=== PATIENT | male | born 1980 | race Caucasian/White ===

== ENCOUNTER 2018-09-16 14:37 | Outpatient (CLI) | payer BC ==
[2018-09-16 15:45] LABS: BASOPHILS % 1.8 (0.0-1.5); EOSINOPHILS % 2.7 % (0.0-6.8); MEAN CORPUSCULAR HEMOGLOBIN 29.1 pg (28.0-34.0); MONOCYTES % 7.2 % (0.0-11.0)
[2018-09-16 15:46] LABS: eGFR (Non-African) > 60
--- NOTE | 2018-09-17 05:31 | Diagnostic Imaging Report ---
CASE BRUCE [facility] [id number] [facility] [address] [address] Report Submission Date: Sep 16, 2018 3:55:06 PM WEIGHT CALLER Patient Study Name: LIZA PRECIADO Date: Sep 16, 2018 2:58:08 PM WEIGHT CALLER Modality Type: DX Gender: M Description: CHEST 2VIEW : 82 Institution: [facility] Physician: CASE BRUCE Examination: PA and lateral chest. History: Evaluate lung orozco. Comparison exam: None provided. Findings: PA and lateral views of the chest demonstrates a normal cardiac and mediastinal silhouette. No focal infiltrate. No blunting of the costophrenic margins. Osseous structures are appropriate for age. Impression: No acute pulmonary process. Electronically signed on Sep 16, 2018 3:55:06 PM WEIGHT CALLER by: Yovany RAI
== END 2018-09-16 14:40 ==
LOC: LAB 14:37
PROVIDERS: ATTEND Nurse Practitioner Family
DX: R00.0 Tachycardia, unspecified (principal); I10 Essential (primary) hypertension; R06.02 Shortness of breath
CPT/HCPCS: 36415; 71046; 80053; 80061; 84439; 84443; 84481; 85025

== ENCOUNTER 2018-10-31 15:59 | Outpatient (CLI) | payer BC ==
[2018-10-31 16:54] LABS: eGFR (Non-African) > 60
== END 2018-10-31 16:02 ==
LOC: LAB 15:59
PROVIDERS: ATTEND Family Medicine
DX: I10 Essential (primary) hypertension (principal)
CPT/HCPCS: 36415; 80048